=== PATIENT | male | born 1950 | race Caucasian/White ===

== ENCOUNTER → 2018-08-19 | Outpatient (CLI) | payer MEDICARE, OTHER ==
[~2018-08-19] MED LIST: OMNIPAQUE 350 MG/ML, 100ML BOTTLE ONE
== END | disposition home or self-care (01) ==
LOC: PETCFH 08:43
PROVIDERS: ATTEND Internal Medicine Medical Oncology
DX: N28.1 Cyst of kidney, acquired (principal); K57.30 Diverticulosis of large intestine without perforation or abscess without bleeding; C61 Malignant neoplasm of prostate
CPT/HCPCS: 74177; 78306; A9503; Q9967

== ENCOUNTER 2019-06-09 08:01 | Day surgery (SDC) | payer MEDICARE, OTHER ==
[~2019-06-09] VITALS: Ht 180.3 cm; Wt 109.3 kg
[2019-06-09] MEDS ORDERED: SODIUM CHLORIDE 0.9% 1,000 ML IV ONE (08:21)
[2019-06-09] MEDS ORDERED: CEFAZOLIN PMX 1GM/50ML 50 ML IV STA (08:23)
[2019-06-09 08:32] VITALS: BP 158/88
[2019-06-09] MEDS ORDERED: CEFAZOLIN PMX 1GM/50ML 50 ML ONE (08:35)
[2019-06-09] MEDS ORDERED: PLEASE ENTER ALLERGIES MC SCH (09:00)
[2019-06-09] MEDS ORDERED: PLEASE ENTER HEIGHT AND WEIGHT MC SCH (09:00)
[2019-06-09] MEDS ORDERED: LIDOCAINE 1%, 20ML ONE (09:24)
[2019-06-09] MEDS ORDERED: FENTANYL PF 100 MCG/2ML ONE (09:27)
[2019-06-09] MEDS ORDERED: NALOXONE 1 MG/ML, 2ML ONE (09:27)
[2019-06-09] MEDS ORDERED: MIDAZOLAM 1 MG/ML, 5ML ONE (09:27)
[2019-06-09] MEDS ORDERED: FLUMAZENIL 0.1 MG/1 ML, 5ML ONE (09:27)
[2019-06-09] MEDS ORDERED: VISIPAQUE 270 MG/ML, 50ML BOTTLE ONE (10:00)
[2019-06-09] MEDS ORDERED: CYSTO CONRAY II 250 ML VIAL UR ONE (10:00)
== END 2019-06-09 11:30 | disposition home or self-care (01) ==
LOC: OUT 08:01
PROVIDERS: ATTEND Urology
DX: R33.9 Retention of urine, unspecified (principal)
CPT/HCPCS: 51040; 75989; 76942; 99156; 99157; C1725; C1769; J0690; J2250; J3010; J7030; Q9958; Q9966; J2310